=== PATIENT | male | born 1965 | race Caucasian/White ===

== ENCOUNTER 2018-03-07 08:46 | Inpatient (IN) | payer OTHER, MEDICAID ==
[~2018-03-07] VITALS: Ht 185.4 cm; Wt 84.5 kg
[2018-03-07 09:22] LABS: Basophils # (auto) 0.1 uL; Basophils % (auto) 0.9 % (0.0-2.0); Eosinophils # (auto) 0.1 uL; Eosinophils % (auto) 1.5 % (0.0-7.0); Hemoglobin 16.2 g/dL (13.5-17.5); Lymphocytes # (auto) 1.9 uL; Mean Corpuscular Hgb Conc. 34.4 g/dL (32.0-36.0); Monocytes # (auto) 0.9 uL; Monocytes % (auto) 12.7 % (0.0-12.0); Neutrophils # (auto) 4.2 uL; Neutrophils % (auto) 58.9 % (37.0-80.0); Nucleated Red Blood Cells % 0.1 %; Platelet Count (auto) 154 10^3/uL (140-450); Red Cell Distribution Width 12.8 % (11.8-14.3); White Blood Cell 7.2 10^3/uL (4.4-10.8)
[2018-03-07 09:45] LABS: Alanine Aminotransferase 24 U/L (16-61); Alkaline Phosphatase 59 U/L (45-117); Anion Gap 7 (5-15); Aspartate Aminotransferase 25 U/L (15-37); BUN/Creatinine Ratio 9.5; Bilirubin, Total 0.3 mg/dL (0.2-1.0); Blood Urea Nitrogen 11 mg/dL (7-18); Calcium 9.4 mg/dL (8.5-10.1); Carbon Dioxide 28 mmol/L (21-32); Chloride 102 mmol/L (98-107); GFR African American 85 mL/min; GFR Non-African American 70 mL/min; Glucose 105 mg/dL (74-106); Magnesium 2.3 mg/dL (1.6-2.6); Sodium 137 mmol/L (136-145); Total Protein 8.2 g/dL (6.4-8.2)
[2018-03-07 09:54] LABS: Urine Bacteria NONE SEEN /hpf (None Seen); Urine Blood Negative /uL (Negative); Urine Specific Gravity 1.003 (1.001-1.035); Urine WBC <1 /hpf (0 - 3)
[2018-03-07] MEDS ORDERED: LABETALOL HCL 5 MG/ML ML 20ML VIAL IV ONE (10:00)
[2018-03-07] MEDS ORDERED: CLOPIDOGREL BISULFATE 75 MG TAB PO ONE (10:00)
[2018-03-07] MEDS ORDERED: ACETAMINOPHEN 325 MG TAB PO PRN (10:45)
[2018-03-07] MEDS ORDERED: DOCUSATE SOD 100 MG CAP PO PRN (10:45)
[2018-03-07] MEDS ORDERED: PANTOPRAZOLE 40 MG TAB PO ONE (10:45)
[2018-03-07] MEDS ORDERED: NITROGLYCERIN 0.4 MG SL TAB SL PRN (10:45)
[2018-03-07] MEDS ORDERED: cloNIDine HCL 0.1 MG TAB PO PRN (10:45)
[2018-03-07] MEDS ORDERED: HYDROcodone-ACET 5/325MG TAB PO PRN (10:45)
[2018-03-07] MEDS ORDERED: ONDANSETRON HCL 4 MG/2 ML VIAL IV PRN (10:45)
[2018-03-07] MEDS ORDERED: MORPHINE SULFATE 8mg/ml INJ SDV IV PRN ×2 (10:45)
[2018-03-07] MEDS: GABAPENTIN 300 MG CAP PO SCH ×4 (11:00→22:08)
[2018-03-07] MEDS: ENOXAPARIN SOD 40 MG/0.4 ML SYRINGE SC SCH (11:30)
[2018-03-07] MEDS ORDERED: ASPirin-EC 81 mg tab PO ONE (13:00)
[2018-03-07] MEDS: SODIUM CHLOR 0.9% PF (SALINE LOCK) 10ML VIAL/SYR IV SCH ×2 (14:20→22:07)
[2018-03-07] MEDS ORDERED: ENALAPRILAT 1.25 MG/ML-1ML VIAL IV PRN (15:00)
[2018-03-07] MEDS ORDERED: LORazepam 2MG/ML-1ML VIAL IV PRN (17:30)
[2018-03-07 18:58] LABS: Cholesterol 174 mg/dL (< 200); HDL Cholesterol 53 mg/dL (40-59); LDL Cholesterol 115 mg/dL (< 100); Triglycerides 91 mg/dL (< 150)
[2018-03-07 22:00] VITALS: BP 134/83
[2018-03-07] MEDS ORDERED: FAMOTIDINE 20 MG TAB PO SCH (22:00)
[2018-03-07] MEDS: ATORVASTATIN 20 MG TAB PO SCH (22:07)
[2018-03-08 02:36] VITALS: BP 134/83
[2018-03-08 04:41] VITALS: BP 152/96
[2018-03-08 05:37] LABS: Basophils # (auto) 0.1 uL; Basophils % (auto) 0.8 % (0.0-2.0); Eosinophils # (auto) 0.2 uL; Eosinophils % (auto) 2.7 % (0.0-7.0); Hematocrit 45.2 % (41.0-53.0); Hemoglobin 15.6 g/dL (13.5-17.5); Lymphocytes # (auto) 1.9 uL; Lymphocytes % (auto) 25.9 % (10.0-50.0); Mean Corpuscular Hemoglobin 33.5 pg (28.0-32.0); Mean Corpuscular Hgb Conc. 34.4 g/dL (32.0-36.0); Mean Corpuscular Volume 97.4 fL (80.0-100.0); Monocytes # (auto) 0.9 uL; Monocytes % (auto) 11.9 % (0.0-12.0); Neutrophils # (auto) 4.4 uL; Neutrophils % (auto) 58.7 % (37.0-80.0); Platelet Count (auto) 147 10^3/uL (140-450); Red Blood Cells 4.64 10^6/uL (4.5-5.90); White Blood Cell 7.5 10^3/uL (4.4-10.8)
[2018-03-08] MEDS: GABAPENTIN 300 MG CAP PO SCH ×4 (05:52→21:31)
[2018-03-08] MEDS: SODIUM CHLOR 0.9% PF (SALINE LOCK) 10ML VIAL/SYR IV SCH ×3 (05:55→21:31)
[2018-03-08 06:00] LABS: Albumin 3.5 g/dL (3.4-5.0); BUN/Creatinine Ratio 13.5; Bilirubin, Total 0.5 mg/dL (0.2-1.0); Calcium 8.9 mg/dL (8.5-10.1); Potassium 3.8 mmol/L (3.5-5.1)
[2018-03-08 09:00] VITALS: BP 172/94
[2018-03-08] MEDS: DULoxetine HCL 30 MG CAP PO SCH (10:09)
[2018-03-08] MEDS: MULTIPLE VITAMIN TAB PO SCH (10:10)
[2018-03-08] MEDS: PANTOPRAZOLE 40 MG TAB PO SCH (10:10)
[2018-03-08] MEDS: ENOXAPARIN SOD 40 MG/0.4 ML SYRINGE SC SCH (10:10)
[2018-03-08] MEDS: ASPirin-EC 81 mg tab PO SCH (10:10)
[2018-03-08] MEDS ORDERED: NICOTINE 21MG/24 HR TOPICAL PATCH TD ONE (11:30)
[2018-03-08 12:53] VITALS: BP 170/90
[2018-03-08] MEDS ORDERED: hydrALAZINE HCL 20 MG/ML VL IV PRN (14:45)
[2018-03-08] MEDS ORDERED: amLODIPine BESYLATE 5 MG TAB PO ONE (14:45)
[2018-03-08 17:00] VITALS: BP 177/106
[2018-03-08] MEDS ORDERED: LABETALOL HCL 5 MG/ML ML 20ML VIAL IV PRN (18:45)
[2018-03-08] MEDS: LABETALOL HCL 5 MG/ML ML 20ML VIAL IV PRN ×2 (18:52→22:45)
[2018-03-08] MEDS: ATORVASTATIN 20 MG TAB PO SCH (21:31)
[2018-03-08 22:00] VITALS: BP 157/94
[2018-03-09 02:08] LABS: Alcohol, Urine < 3.0 mg/dL (0-5); Amphetamine Screen, Urine NEGATIVE (NEGATIVE); Barbiturate Scree,Urine NEGATIVE (NEGATIVE); Benzodiazephine Screen, Urine NEGATIVE (NEGATIVE); Cannabinoid Screen, Urine POSITIVE (NEGATIVE); Cocaine Screen, Urine NEGATIVE (NEGATIVE); Opiate Scree,Urine NEGATIVE (NEGATIVE); Phencyclidine Screen, Urine NEGATIVE (NEGATIVE)
[2018-03-09 04:43] VITALS: BP 150/84
[2018-03-09] MEDS: GABAPENTIN 300 MG CAP PO SCH ×4 (06:00→21:26)
[2018-03-09] MEDS: SODIUM CHLOR 0.9% PF (SALINE LOCK) 10ML VIAL/SYR IV SCH ×3 (06:03→21:26)
[2018-03-09 08:00] VITALS: BP 171/86
[2018-03-09 09:00] VITALS: BP 171/86
[2018-03-09] MEDS: ASPirin-EC 81 mg tab PO SCH (09:37)
[2018-03-09] MEDS: MULTIPLE VITAMIN TAB PO SCH (09:37)
[2018-03-09] MEDS: DULoxetine HCL 30 MG CAP PO SCH (09:38)
[2018-03-09] MEDS: PANTOPRAZOLE 40 MG TAB PO SCH (09:39)
[2018-03-09] MEDS: ENOXAPARIN SOD 40 MG/0.4 ML SYRINGE SC SCH (09:40)
[2018-03-09] MEDS: NICOTINE 21MG/24 HR TOPICAL PATCH TD SCH (09:41)
[2018-03-09] MEDS ORDERED: amLODIPine BESYLATE 5 MG TAB PO SCH (10:00)
[2018-03-09] MEDS ORDERED: LOSARTAN POTASSIUM 25 MG TAB PO ONE (10:15)
[2018-03-09] MEDS ORDERED: LORazepam 2MG/ML-1ML VIAL IV ONE (10:45)
[2018-03-09 12:56] VITALS: BP 164/116
[2018-03-09 17:06] VITALS: BP 158/82
[2018-03-09] MEDS: ATORVASTATIN 20 MG TAB PO SCH (21:26)
[2018-03-09] MEDS: TEMAZEPAM 15 MG CAP PO PRN (21:31)
[2018-03-09 22:00] VITALS: BP 156/99
[2018-03-10 05:00] VITALS: BP 142/72
[2018-03-10] MEDS: SODIUM CHLOR 0.9% PF (SALINE LOCK) 10ML VIAL/SYR IV SCH ×3 (05:53→21:43)
[2018-03-10] MEDS: GABAPENTIN 300 MG CAP PO SCH ×4 (05:53→21:44)
[2018-03-10 08:42] VITALS: BP 153/93
[2018-03-10] MEDS: DULoxetine HCL 30 MG CAP PO SCH (10:12)
[2018-03-10] MEDS: amLODIPine BESYLATE 5 MG TAB PO SCH (10:13)
[2018-03-10] MEDS: ASPirin-EC 81 mg tab PO SCH (10:13)
[2018-03-10] MEDS: PANTOPRAZOLE 40 MG TAB PO SCH (10:14)
[2018-03-10] MEDS: LOSARTAN POTASSIUM 25 MG TAB PO SCH (10:14)
[2018-03-10] MEDS: MULTIPLE VITAMIN TAB PO SCH (10:15)
[2018-03-10] MEDS: ENOXAPARIN SOD 40 MG/0.4 ML SYRINGE SC SCH (10:15)
[2018-03-10] MEDS: NICOTINE 21MG/24 HR TOPICAL PATCH TD SCH (10:18)
[2018-03-10 13:12] VITALS: BP 136/68
[2018-03-10 17:00] VITALS: BP 163/96
[2018-03-10] MEDS: ATORVASTATIN 20 MG TAB PO SCH (21:43)
[2018-03-10] MEDS: TEMAZEPAM 15 MG CAP PO PRN (21:44)
[2018-03-10 22:00] VITALS: BP 145/79
[2018-03-11 05:00] VITALS: BP 144/77
[2018-03-11] MEDS: SODIUM CHLOR 0.9% PF (SALINE LOCK) 10ML VIAL/SYR IV SCH ×3 (06:00→22:00)
[2018-03-11] MEDS: GABAPENTIN 300 MG CAP PO SCH ×4 (06:01→23:49)
[2018-03-11 09:00] VITALS: BP 149/73
[2018-03-11] MEDS: amLODIPine BESYLATE 5 MG TAB PO SCH (09:28)
[2018-03-11] MEDS: ASPirin-EC 81 mg tab PO SCH (09:29)
[2018-03-11] MEDS: PANTOPRAZOLE 40 MG TAB PO SCH (09:30)
[2018-03-11] MEDS: LOSARTAN POTASSIUM 25 MG TAB PO SCH (09:30)
[2018-03-11] MEDS: MULTIPLE VITAMIN TAB PO SCH (09:30)
[2018-03-11] MEDS: DULoxetine HCL 30 MG CAP PO SCH (09:31)
[2018-03-11] MEDS: ENOXAPARIN SOD 40 MG/0.4 ML SYRINGE SC SCH (09:32)
[2018-03-11] MEDS: NICOTINE 21MG/24 HR TOPICAL PATCH TD SCH (09:32)
[2018-03-11 13:00] VITALS: BP 142/88
[2018-03-11] MEDS: LIDOCAINE 5% TOPICAL PATCH TOP SCH (15:49)
[2018-03-11 17:13] VITALS: BP 152/95
[2018-03-11 22:00] VITALS: BP 164/96
[2018-03-11] MEDS: LACTULOSE 20Gm/30ML SOLN PO SCH (22:00)
[2018-03-11] MEDS: ATORVASTATIN 20 MG TAB PO SCH (23:49)
[2018-03-12] MEDS: TEMAZEPAM 15 MG CAP PO PRN ×2 (00:54→23:14)
[2018-03-12 05:33] VITALS: BP 140/82
[2018-03-12] MEDS: GABAPENTIN 300 MG CAP PO SCH ×4 (06:39→22:43)
[2018-03-12] MEDS: SODIUM CHLOR 0.9% PF (SALINE LOCK) 10ML VIAL/SYR IV SCH ×3 (06:40→22:44)
[2018-03-12 09:00] VITALS: BP 144/93
[2018-03-12] MEDS: ENOXAPARIN SOD 40 MG/0.4 ML SYRINGE SC SCH (09:31)
[2018-03-12] MEDS: NICOTINE 21MG/24 HR TOPICAL PATCH TD SCH (09:32)
[2018-03-12] MEDS: DULoxetine HCL 30 MG CAP PO SCH (09:32)
[2018-03-12] MEDS: ASPirin-EC 81 mg tab PO SCH (09:33)
[2018-03-12] MEDS: MULTIPLE VITAMIN TAB PO SCH (09:33)
[2018-03-12] MEDS: PANTOPRAZOLE 40 MG TAB PO SCH (09:33)
[2018-03-12] MEDS: amLODIPine BESYLATE 5 MG TAB PO SCH (09:34)
[2018-03-12] MEDS: LOSARTAN POTASSIUM 25 MG TAB PO SCH (09:34)
[2018-03-12] MEDS: LIDOCAINE 5% TOPICAL PATCH TOP SCH (09:35)
[2018-03-12 13:00] VITALS: BP 153/94
[2018-03-12 17:10] VITALS: BP 137/86
[2018-03-12] MEDS: ATORVASTATIN 20 MG TAB PO SCH (22:44)
[2018-03-12] MEDS: LACTULOSE 20Gm/30ML SOLN PO SCH (23:13)
[2018-03-13 00:04] VITALS: BP 145/78
[2018-03-13 06:08] VITALS: BP 137/78
[2018-03-13] MEDS: SODIUM CHLOR 0.9% PF (SALINE LOCK) 10ML VIAL/SYR IV SCH ×3 (06:57→22:57)
[2018-03-13] MEDS: GABAPENTIN 300 MG CAP PO SCH ×4 (06:57→22:57)
[2018-03-13] MEDS: LIDOCAINE 5% TOPICAL PATCH TOP SCH (08:51)
[2018-03-13] MEDS: ENOXAPARIN SOD 40 MG/0.4 ML SYRINGE SC SCH (08:51)
[2018-03-13] MEDS: DULoxetine HCL 30 MG CAP PO SCH (08:52)
[2018-03-13] MEDS: amLODIPine BESYLATE 5 MG TAB PO SCH (08:52)
[2018-03-13] MEDS: NICOTINE 21MG/24 HR TOPICAL PATCH TD SCH (08:52)
[2018-03-13] MEDS: ASPirin-EC 81 mg tab PO SCH (08:53)
[2018-03-13] MEDS: PANTOPRAZOLE 40 MG TAB PO SCH (08:53)
[2018-03-13] MEDS: LOSARTAN POTASSIUM 25 MG TAB PO SCH (08:53)
[2018-03-13] MEDS: MULTIPLE VITAMIN TAB PO SCH (08:53)
[2018-03-13 09:00] VITALS: BP 162/90
[2018-03-13 13:00] VITALS: BP 150/97
[2018-03-13 17:00] VITALS: BP 179/99
[2018-03-13] MEDS: LABETALOL HCL 5 MG/ML ML 20ML VIAL IV PRN (18:12)
[2018-03-13 22:00] VITALS: BP 124/79
[2018-03-13] MEDS: LACTULOSE 20Gm/30ML SOLN PO SCH (22:55)
[2018-03-13] MEDS: ATORVASTATIN 20 MG TAB PO SCH (22:56)
[2018-03-13] MEDS: TEMAZEPAM 15 MG CAP PO PRN (22:57)
[2018-03-14 05:00] VITALS: BP 143/73
[2018-03-14] MEDS: SODIUM CHLOR 0.9% PF (SALINE LOCK) 10ML VIAL/SYR IV SCH ×3 (05:22→21:50)
[2018-03-14 06:02] LABS: Basophils # (auto) 0.1 uL; Basophils % (auto) 0.9 % (0.0-2.0); Eosinophils # (auto) 0.2 uL; Eosinophils % (auto) 2.2 % (0.0-7.0); Hematocrit 44.3 % (41.0-53.0); Hemoglobin 14.9 g/dL (13.5-17.5); Lymphocytes # (auto) 1.7 uL; Mean Corpuscular Hgb Conc. 33.7 g/dL (32.0-36.0); Mean Corpuscular Volume 97.9 fL (80.0-100.0); Monocytes # (auto) 1.1 uL; Monocytes % (auto) 14.2 % (0.0-12.0); Neutrophils # (auto) 4.5 uL; Neutrophils % (auto) 59.7 % (37.0-80.0); Nucleated Red Blood Cells % 0.1 %; Platelet Count (auto) 139 10^3/uL (140-450); Red Blood Cells 4.53 10^6/uL (4.5-5.90); Red Cell Distribution Width 12.7 % (11.8-14.3); White Blood Cell 7.5 10^3/uL (4.4-10.8)
[2018-03-14 06:17] LABS: Calcium 9.3 mg/dL (8.5-10.1); Potassium 4.3 mmol/L (3.5-5.1)
[2018-03-14 06:19] LABS: BUN/Creatinine Ratio 22.2
[2018-03-14] MEDS: GABAPENTIN 300 MG CAP PO SCH ×4 (06:34→21:50)
[2018-03-14 08:00] VITALS: BP 138/80
[2018-03-14 09:00] VITALS: BP 130/81
[2018-03-14] MEDS ORDERED: LACTULOSE 20Gm/30ML SOLN PO ONE (09:45)
[2018-03-14] MEDS: DULoxetine HCL 30 MG CAP PO SCH (09:49)
[2018-03-14] MEDS: ASPirin-EC 81 mg tab PO SCH (09:49)
[2018-03-14] MEDS: PANTOPRAZOLE 40 MG TAB PO SCH (09:49)
[2018-03-14] MEDS: amLODIPine BESYLATE 5 MG TAB PO SCH (09:49)
[2018-03-14] MEDS: LIDOCAINE 5% TOPICAL PATCH TOP SCH (09:50)
[2018-03-14] MEDS: LOSARTAN POTASSIUM 25 MG TAB PO SCH (09:50)
[2018-03-14] MEDS: MULTIPLE VITAMIN TAB PO SCH (09:50)
[2018-03-14] MEDS: NICOTINE 21MG/24 HR TOPICAL PATCH TD SCH (09:52)
[2018-03-14] MEDS: ENOXAPARIN SOD 40 MG/0.4 ML SYRINGE SC SCH (10:44)
[2018-03-14 13:00] VITALS: BP 149/101
[2018-03-14] MEDS: BISACODYL 10 MG RECT SUPP PR PRN (13:34)
[2018-03-14 17:00] VITALS: BP 158/83
[2018-03-14] MEDS: LACTULOSE 20Gm/30ML SOLN PO SCH (21:49)
[2018-03-14] MEDS: ATORVASTATIN 20 MG TAB PO SCH (21:50)
[2018-03-14] MEDS: TEMAZEPAM 15 MG CAP PO PRN (21:52)
[2018-03-14 22:00] VITALS: BP 148/88
[2018-03-15 05:30] VITALS: BP 121/57
[2018-03-15] MEDS: GABAPENTIN 300 MG CAP PO SCH ×4 (06:09→22:00)
[2018-03-15] MEDS: SODIUM CHLOR 0.9% PF (SALINE LOCK) 10ML VIAL/SYR IV SCH ×3 (06:09→22:00)
[2018-03-15 08:00] VITALS: BP 147/83
[2018-03-15 09:00] VITALS: BP 147/83
[2018-03-15] MEDS: ENOXAPARIN SOD 40 MG/0.4 ML SYRINGE SC SCH (09:06)
[2018-03-15] MEDS: NICOTINE 21MG/24 HR TOPICAL PATCH TD SCH (09:08)
[2018-03-15] MEDS: LIDOCAINE 5% TOPICAL PATCH TOP SCH (09:08)
[2018-03-15] MEDS: amLODIPine BESYLATE 5 MG TAB PO SCH (09:08)
[2018-03-15] MEDS: ASPirin-EC 81 mg tab PO SCH (09:09)
[2018-03-15] MEDS: LOSARTAN POTASSIUM 25 MG TAB PO SCH (09:09)
[2018-03-15] MEDS: PANTOPRAZOLE 40 MG TAB PO SCH (09:10)
[2018-03-15] MEDS: MULTIPLE VITAMIN TAB PO SCH (09:10)
[2018-03-15] MEDS: DULoxetine HCL 30 MG CAP PO SCH (09:10)
[2018-03-15] MEDS ORDERED: LOSARTAN POTASSIUM 50 MG TAB PO ONE (10:15)
[2018-03-15] MEDS ORDERED: hydrALAZINE HCL 25 MG TAB PO PRN (10:15)
[2018-03-15 13:00] VITALS: BP 140/82
[2018-03-15 16:58] VITALS: BP 136/84
[2018-03-15 22:00] VITALS: BP 144/83
[2018-03-15] MEDS: LACTULOSE 20Gm/30ML SOLN PO SCH (22:00)
[2018-03-15] MEDS: ATORVASTATIN 20 MG TAB PO SCH (22:00)
[2018-03-16 05:00] VITALS: BP 128/74
[2018-03-16] MEDS: GABAPENTIN 300 MG CAP PO SCH ×4 (06:26→22:14)
[2018-03-16] MEDS: SODIUM CHLOR 0.9% PF (SALINE LOCK) 10ML VIAL/SYR IV SCH ×3 (06:30→22:10)
[2018-03-16 08:50] VITALS: BP 131/81
[2018-03-16] MEDS: DULoxetine HCL 30 MG CAP PO SCH (10:38)
[2018-03-16] MEDS: MULTIPLE VITAMIN TAB PO SCH (10:38)
[2018-03-16] MEDS: ASPirin-EC 81 mg tab PO SCH (10:38)
[2018-03-16] MEDS: LOSARTAN POTASSIUM 50 MG TAB PO SCH (10:38)
[2018-03-16] MEDS: amLODIPine BESYLATE 5 MG TAB PO SCH (10:39)
[2018-03-16] MEDS: PANTOPRAZOLE 40 MG TAB PO SCH (10:39)
[2018-03-16] MEDS: LIDOCAINE 5% TOPICAL PATCH TOP SCH (10:40)
[2018-03-16] MEDS: ENOXAPARIN SOD 40 MG/0.4 ML SYRINGE SC SCH (10:40)
[2018-03-16] MEDS: NICOTINE 21MG/24 HR TOPICAL PATCH TD SCH (10:40)
[2018-03-16 12:46] VITALS: BP 143/75
[2018-03-16 17:00] VITALS: BP 146/96
[2018-03-16 22:00] VITALS: BP 158/90
[2018-03-16] MEDS: LACTULOSE 20Gm/30ML SOLN PO SCH (22:10)
[2018-03-16] MEDS: ATORVASTATIN 20 MG TAB PO SCH (22:11)
[2018-03-16] MEDS: TEMAZEPAM 15 MG CAP PO PRN (22:15)
[2018-03-17 05:05] VITALS: BP 138/89
[2018-03-17] MEDS: GABAPENTIN 300 MG CAP PO SCH ×4 (06:11→22:00)
[2018-03-17] MEDS: SODIUM CHLOR 0.9% PF (SALINE LOCK) 10ML VIAL/SYR IV SCH ×3 (06:11→22:00)
[2018-03-17 09:09] VITALS: BP 143/86
[2018-03-17] MEDS: LIDOCAINE 5% TOPICAL PATCH TOP SCH (10:28)
[2018-03-17] MEDS: NICOTINE 21MG/24 HR TOPICAL PATCH TD SCH (10:29)
[2018-03-17] MEDS: MULTIPLE VITAMIN TAB PO SCH (10:30)
[2018-03-17] MEDS: ENOXAPARIN SOD 40 MG/0.4 ML SYRINGE SC SCH (10:30)
[2018-03-17] MEDS: amLODIPine BESYLATE 5 MG TAB PO SCH (10:30)
[2018-03-17] MEDS: ASPirin-EC 81 mg tab PO SCH (10:31)
[2018-03-17] MEDS: DULoxetine HCL 30 MG CAP PO SCH (10:31)
[2018-03-17] MEDS: PANTOPRAZOLE 40 MG TAB PO SCH (10:31)
[2018-03-17] MEDS: LOSARTAN POTASSIUM 50 MG TAB PO SCH (10:32)
[2018-03-17 12:46] VITALS: BP 142/83
[2018-03-17 17:07] VITALS: BP 173/110
[2018-03-17 22:00] VITALS: BP 175/85
[2018-03-17] MEDS: ATORVASTATIN 20 MG TAB PO SCH (22:00)
[2018-03-17] MEDS: LACTULOSE 20Gm/30ML SOLN PO SCH (22:00)
[2018-03-17 23:00] VITALS: BP 141/85
[2018-03-18 05:00] VITALS: BP 125/74
[2018-03-18] MEDS: GABAPENTIN 300 MG CAP PO SCH ×4 (05:32→21:07)
[2018-03-18] MEDS: SODIUM CHLOR 0.9% PF (SALINE LOCK) 10ML VIAL/SYR IV SCH ×3 (05:32→21:07)
[2018-03-18] MEDS: HYDROcodone-ACET 5/325MG TAB PO PRN ×2 (08:26→14:08)
[2018-03-18 09:00] VITALS: BP 139/83
[2018-03-18] MEDS: NICOTINE 21MG/24 HR TOPICAL PATCH TD SCH (09:58)
[2018-03-18] MEDS: ENOXAPARIN SOD 40 MG/0.4 ML SYRINGE SC SCH (09:58)
[2018-03-18] MEDS: LOSARTAN POTASSIUM 50 MG TAB PO SCH (09:59)
[2018-03-18] MEDS: ASPirin-EC 81 mg tab PO SCH (09:59)
[2018-03-18] MEDS: DULoxetine HCL 30 MG CAP PO SCH (09:59)
[2018-03-18] MEDS: MULTIPLE VITAMIN TAB PO SCH (10:00)
[2018-03-18] MEDS: PANTOPRAZOLE 40 MG TAB PO SCH (10:00)
[2018-03-18] MEDS: amLODIPine BESYLATE 5 MG TAB PO SCH (10:00)
[2018-03-18 13:00] VITALS: BP 116/100
[2018-03-18 17:00] VITALS: BP 140/94
[2018-03-18] MEDS: MORPHINE SULFATE 8mg/ml INJ SDV IV PRN (20:29)
[2018-03-18] MEDS: ATORVASTATIN 20 MG TAB PO SCH (21:06)
[2018-03-18] MEDS: LACTULOSE 20Gm/30ML SOLN PO SCH (21:07)
[2018-03-18] MEDS ORDERED: DULoxetine HCL 30 MG CAP PO SCH (22:00)
[2018-03-18 22:11] VITALS: BP 149/90
[2018-03-19] MEDS: TEMAZEPAM 15 MG CAP PO PRN ×2 (00:14→21:42)
[2018-03-19 05:30] VITALS: BP 124/60
[2018-03-19] MEDS: SODIUM CHLOR 0.9% PF (SALINE LOCK) 10ML VIAL/SYR IV SCH ×3 (05:37→21:41)
[2018-03-19] MEDS: GABAPENTIN 300 MG CAP PO SCH ×4 (05:37→21:41)
[2018-03-19 08:59] VITALS: BP 148/87
[2018-03-19] MEDS: ENOXAPARIN SOD 40 MG/0.4 ML SYRINGE SC SCH (09:42)
[2018-03-19] MEDS: NICOTINE 21MG/24 HR TOPICAL PATCH TD SCH (09:42)
[2018-03-19] MEDS: ASPirin-EC 81 mg tab PO SCH (09:42)
[2018-03-19] MEDS: PANTOPRAZOLE 40 MG TAB PO SCH (09:42)
[2018-03-19] MEDS: LOSARTAN POTASSIUM 50 MG TAB PO SCH (09:43)
[2018-03-19] MEDS: DULoxetine HCL 30 MG CAP PO SCH (09:43)
[2018-03-19] MEDS: MULTIPLE VITAMIN TAB PO SCH (09:44)
[2018-03-19] MEDS: amLODIPine BESYLATE 5 MG TAB PO SCH (09:44)
[2018-03-19] MEDS: MORPHINE SULFATE 8mg/ml INJ SDV IV PRN (12:08)
[2018-03-19] MEDS: HYDROcodone-ACET 5/325MG TAB PO PRN ×2 (12:46→17:10)
[2018-03-19 13:00] VITALS: BP 136/88
[2018-03-19 17:03] VITALS: BP 150/92
[2018-03-19] MEDS: ATORVASTATIN 20 MG TAB PO SCH (21:41)
[2018-03-19] MEDS: LACTULOSE 20Gm/30ML SOLN PO SCH (21:41)
[2018-03-19 23:00] VITALS: BP 145/89
[2018-03-20] MEDS: HYDROcodone-ACET 5/325MG TAB PO PRN ×4 (04:33→16:10)
[2018-03-20] MEDS: SODIUM CHLOR 0.9% PF (SALINE LOCK) 10ML VIAL/SYR IV SCH ×3 (05:36→21:33)
[2018-03-20] MEDS: GABAPENTIN 300 MG CAP PO SCH ×4 (05:36→21:34)
[2018-03-20 05:57] LABS: INR 0.95 (0.9-1.15); Prothrombin Time 10.4 sec (9.37-12.3)
[2018-03-20 06:24] VITALS: BP 138/94
[2018-03-20 08:19] VITALS: BP 145/86
[2018-03-20] MEDS: NICOTINE 21MG/24 HR TOPICAL PATCH TD SCH (10:08)
[2018-03-20] MEDS: ENOXAPARIN SOD 40 MG/0.4 ML SYRINGE SC SCH (10:08)
[2018-03-20] MEDS: DULoxetine HCL 30 MG CAP PO SCH (10:09)
[2018-03-20] MEDS: ASPirin-EC 81 mg tab PO SCH (10:09)
[2018-03-20] MEDS: LOSARTAN POTASSIUM 50 MG TAB PO SCH (10:09)
[2018-03-20] MEDS: PANTOPRAZOLE 40 MG TAB PO SCH (10:09)
[2018-03-20] MEDS: MULTIPLE VITAMIN TAB PO SCH (10:09)
[2018-03-20] MEDS: amLODIPine BESYLATE 5 MG TAB PO SCH (10:10)
[2018-03-20 12:00] VITALS: BP 141/93
[2018-03-20] MEDS: BISACODYL 10 MG RECT SUPP PR PRN ×2 (14:00→18:55)
[2018-03-20 16:58] VITALS: BP 148/97
[2018-03-20] MEDS: MORPHINE SULFATE 8mg/ml INJ SDV IV PRN (18:54)
[2018-03-20] MEDS: ATORVASTATIN 20 MG TAB PO SCH (21:34)
[2018-03-20] MEDS: LACTULOSE 20Gm/30ML SOLN PO SCH (21:34)
[2018-03-20] MEDS: TEMAZEPAM 15 MG CAP PO PRN (21:43)
[2018-03-20 22:00] VITALS: BP 139/81
[2018-03-21 05:00] VITALS: BP 136/60
[2018-03-21 05:22] LABS: Basophils # (auto) 0.1 uL; Basophils % (auto) 0.9 % (0.0-2.0); Eosinophils # (auto) 0.2 uL; Eosinophils % (auto) 2.4 % (0.0-7.0); Hematocrit 46.9 % (41.0-53.0); Hemoglobin 15.8 g/dL (13.5-17.5); Lymphocytes # (auto) 2.4 uL; Lymphocytes % (auto) 32.9 % (10.0-50.0); Mean Corpuscular Hgb Conc. 33.7 g/dL (32.0-36.0); Monocytes % (auto) 13.6 % (0.0-12.0); Neutrophils # (auto) 3.7 uL; Neutrophils % (auto) 50.2 % (37.0-80.0); Nucleated Red Blood Cells % 0.1 %; Platelet Count (auto) 160 10^3/uL (140-450); Red Blood Cells 4.78 10^6/uL (4.5-5.90); Red Cell Distribution Width 12.6 % (11.8-14.3); White Blood Cell 7.3 10^3/uL (4.4-10.8)
[2018-03-21] MEDS: GABAPENTIN 300 MG CAP PO SCH ×3 (05:37→17:58)
[2018-03-21] MEDS: SODIUM CHLOR 0.9% PF (SALINE LOCK) 10ML VIAL/SYR IV SCH (05:37)
[2018-03-21 05:49] LABS: Albumin 3.9 g/dL (3.4-5.0); Calcium 9.6 mg/dL (8.5-10.1); Potassium 3.8 mmol/L (3.5-5.1)
[2018-03-21 05:53] LABS: Bilirubin, Total 0.5 mg/dL (0.2-1.0); Total Protein 7.8 g/dL (6.4-8.2)
[2018-03-21 08:42] VITALS: BP 157/84
[2018-03-21] MEDS: DULoxetine HCL 30 MG CAP PO SCH (09:40)
[2018-03-21] MEDS: ASPirin-EC 81 mg tab PO SCH (09:40)
[2018-03-21] MEDS: LOSARTAN POTASSIUM 50 MG TAB PO SCH (09:40)
[2018-03-21] MEDS: amLODIPine BESYLATE 5 MG TAB PO SCH (09:41)
[2018-03-21] MEDS: MULTIPLE VITAMIN TAB PO SCH (09:41)
[2018-03-21] MEDS: ENOXAPARIN SOD 40 MG/0.4 ML SYRINGE SC SCH (09:42)
[2018-03-21] MEDS: NICOTINE 21MG/24 HR TOPICAL PATCH TD SCH (09:42)
[2018-03-21] MEDS: PANTOPRAZOLE 40 MG TAB PO SCH (09:42)
[2018-03-21] MEDS ORDERED: ASP81EC PO (10:12)
[2018-03-21] MEDS ORDERED: LOSA50TA6 PO (10:12)
[2018-03-21] MEDS ORDERED: ATOR20TA50 PO (10:12)
[2018-03-21] MEDS ORDERED: AML5T PO (10:12)
[2018-03-21] MEDS ORDERED: DULO1CAP2 PO (10:12)
[2018-03-21] MEDS ORDERED: NIC21P TD (10:12)
[2018-03-21] MEDS ORDERED: ACETAMINOPHEN 325 MG TAB PO PRN (10:15)
[2018-03-21] MEDS ORDERED: DOCUSATE SOD 100 MG CAP PO PRN (10:15)
[2018-03-21] MEDS ORDERED: ONDANSETRON HCL 4 MG/2 ML VIAL IV PRN (10:15)
[2018-03-21] MEDS ORDERED: HYDROcodone-ACET 5/325MG TAB PO PRN (10:15)
[2018-03-21] MEDS ORDERED: MORPHINE SULFATE 8mg/ml INJ SDV IV PRN (10:15)
[2018-03-21] MEDS ORDERED: TEMAZEPAM 15 MG CAP PO PRN (10:15)
[2018-03-21 13:00] VITALS: BP 150/99
[2018-03-21] MEDS ORDERED: SODIUM CHLOR 0.9% PF (SALINE LOCK) 10ML VIAL/SYR IV SCH (14:00)
[2018-03-21 15:57] VITALS: BP 150/99
[2018-03-21 16:57] VITALS: BP 139/84
[2018-03-21] MEDS ORDERED: ATORVASTATIN 20 MG TAB PO SCH (22:00)
[2018-03-21] MEDS ORDERED: GABAPENTIN 300 MG CAP PO SCH (22:00)
[2018-03-22] MEDS ORDERED: ASPirin-EC 81 mg tab PO SCH (10:00)
[2018-03-22] MEDS ORDERED: NICOTINE 21MG/24 HR TOPICAL PATCH TD SCH (10:00)
[2018-03-22] MEDS ORDERED: DULoxetine HCL 30 MG CAP PO SCH (10:00)
[2018-03-22] MEDS ORDERED: MULTIPLE VITAMIN TAB PO SCH (10:00)
[2018-03-22] MEDS ORDERED: PANTOPRAZOLE 40 MG TAB PO SCH (10:00)
[2018-03-22] MEDS ORDERED: ENOXAPARIN SOD 40 MG/0.4 ML SYRINGE SC SCH (10:00)
== END 2018-03-21 18:40 | disposition home or self-care (01) | DRG 65 ==
LOC: ER 08:46 → TELE 08:47 → TELE-WESTW 18:02 → WEST WING 03-15 10:29 → TELE-WESTW 03-16 11:42 → WEST WING 03-18 01:57
PROVIDERS: ADMIT Internal Medicine; ATTEND Internal Medicine
DX: I63.9 Cerebral infarction, unspecified (principal); G81.91 Hemiplegia, unspecified affecting right dominant side; I13.10 Hypertensive heart and chronic kidney disease without heart failure, with stage 1 through stage 4 chronic kidney disease, or unspecified chronic kidney disease; G81.94 Hemiplegia, unspecified affecting left nondominant side; N18.2 Chronic kidney disease, stage 2 (mild); E78.5 Hyperlipidemia, unspecified; F17.200 Nicotine dependence, unspecified, uncomplicated; F32.9 Major depressive disorder, single episode, unspecified; F41.9 Anxiety disorder, unspecified; Q55.22 Retractile testis; G89.4 Chronic pain syndrome; H53.2 Diplopia; M06.9 Rheumatoid arthritis, unspecified; I70.8 Atherosclerosis of other arteries; K59.00 Constipation, unspecified; M21.379 Foot drop, unspecified foot; M54.16 Radiculopathy, lumbar region; N18.9 Chronic kidney disease, unspecified; R29.810 Facial weakness; Z79.82 Long term (current) use of aspirin; Z79.899 Other long term (current) drug therapy; Z80.1 Family history of malignant neoplasm of trachea, bronchus and lung; Z82.3 Family history of stroke; Z82.49 Family history of ischemic heart disease and other diseases of the circulatory system; R47.1 Dysarthria and anarthria
CPT/HCPCS: 36415; 70450; 70545; 70551; 71045; 80048; 80053; 80061; 80307; 81001; 83735; 84484; 85025; 85610; 87081; 92610; 93005; 93306; 93886; 93971; 94660; 96372; 96374; 97110; 97116; 97163; 97530; 99291; J2270; J2405

== ENCOUNTER → 2018-07-26 | Outpatient (CLI) | payer MEDICARE, MEDICAID ==
[~2018-07-26] MED LIST: AML5T PO; ASP81EC PO; ATOR20TA50 PO; DULO1CAP2 PO; LOSA-46 PO; NIC21P TD
== END | disposition home or self-care (01) ==
LOC: Rad HDHVI 14:37
PROVIDERS: ATTEND Internal Medicine
DX: I73.9 Peripheral vascular disease, unspecified (principal); E78.5 Hyperlipidemia, unspecified; I10 Essential (primary) hypertension
CPT/HCPCS: 93926

== ENCOUNTER → 2018-08-04 | Outpatient (CLI) | payer MEDICARE, MEDICAID ==
[~2018-08-04] VITALS: Ht 182.9 cm; Wt 94.3 kg
[~2018-08-04] MED LIST changes: +ADENOSINE 79 MG in GIVE UN-DILUTED 0 ML IV ONE; +ADENOSINE 90 MG/30 ML INJ IV ONE
[2018-08-04 12:01] LABS: Urine Blood Negative /uL (Negative)
[2018-08-04 12:07] LABS: Basophils # (auto) 0.1 uL; Eosinophils # (auto) 0.2 uL; Eosinophils % (auto) 2.8 % (0.0-7.0); Hemoglobin 13.8 g/dL (13.5-17.5); Lymphocytes # (auto) 1.8 uL; Lymphocytes % (auto) 24.6 % (10.0-50.0); Mean Corpuscular Hemoglobin 33.3 pg (28.0-32.0); Mean Corpuscular Hgb Conc. 34.5 g/dL (32.0-36.0); Mean Corpuscular Volume 96.5 fL (80.0-100.0); Monocytes # (auto) 0.7 uL; Monocytes % (auto) 10.3 % (0.0-12.0); Neutrophils # (auto) 4.4 uL; Neutrophils % (auto) 61.3 % (37.0-80.0); Platelet Count (auto) 189 10^3/uL (140-450); Red Blood Cells 4.14 10^6/uL (4.5-5.90); Red Cell Distribution Width 12.8 % (11.8-14.3); White Blood Cell 7.2 10^3/uL (4.4-10.8)
[2018-08-04 12:20] LABS: Albumin 4.2 g/dL (3.4-5.0); BUN/Creatinine Ratio 8.8; Bilirubin, Total 0.3 mg/dL (0.2-1.0); Calcium 9.3 mg/dL (8.5-10.1); Potassium 3.6 mmol/L (3.5-5.1); Total Protein 8.1 g/dL (6.4-8.2)
[2018-08-04 12:28] LABS: Free T4 (Free Thyroxine) 0.89 ng/dL (0.89-1.76); Prostate Specific Antigen 1.21 ng/mL (0.0-4.0)
== END | disposition home or self-care (01) ==
LOC: Rad HDHVI 08:08
PROVIDERS: ATTEND Internal Medicine
DX: Z00.01 Encounter for general adult medical examination with abnormal findings (principal); C61 Malignant neoplasm of prostate; I25.10 Atherosclerotic heart disease of native coronary artery without angina pectoris; I12.9 Hypertensive chronic kidney disease with stage 1 through stage 4 chronic kidney disease, or unspecified chronic kidney disease; E11.22 Type 2 diabetes mellitus with diabetic chronic kidney disease; N18.3 Chronic kidney disease, stage 3 (moderate); N39.0 Urinary tract infection, site not specified; D51.9 Vitamin B12 deficiency anemia, unspecified; E29.1 Testicular hypofunction; E55.9 Vitamin D deficiency, unspecified; E03.9 Hypothyroidism, unspecified; R06.02 Shortness of breath; R42 Dizziness and giddiness; R60.9 Edema, unspecified; G62.9 Polyneuropathy, unspecified; R53.1 Weakness; Z86.73 Personal history of transient ischemic attack (TIA), and cerebral infarction without residual deficits
CPT/HCPCS: 36415; 78452; 80053; 80061; 81003; 82306; 82607; 83036; 84153; 84403; 84439; 84443; 85025; 93005; 96374; 96375; A9500; J0153

== ENCOUNTER → 2019-05-03 | Outpatient (CLI) | payer MEDICARE, MEDICAID ==
[~2019-05-03] MED LIST changes: -ADENOSINE 79 MG in GIVE UN-DILUTED 0 ML IV ONE; -ADENOSINE 90 MG/30 ML INJ IV ONE
[2019-05-03 11:25] LABS: Basophils # (auto) 0.1 uL; Basophils % (auto) 0.8 % (0.0-2.0); Eosinophils # (auto) 0.2 uL; Hemoglobin 13.3 g/dL (13.5-17.5); Lymphocytes # (auto) 1.5 uL; Mean Corpuscular Hemoglobin 32.4 pg (28.0-32.0); Mean Corpuscular Hgb Conc. 33.2 g/dL (32.0-36.0); Mean Corpuscular Volume 97.7 fL (80.0-100.0); Monocytes # (auto) 0.7 uL; Monocytes % (auto) 9.2 % (0.0-12.0); Neutrophils # (auto) 4.9 uL; Nucleated Red Blood Cells % 0.1 %; Platelet Count (auto) 177 10^3/uL (140-450); Red Cell Distribution Width 12.9 % (11.8-14.3); Urine Blood Negative /uL (Negative); Urine Specific Gravity 1.009 (1.001-1.035); White Blood Cell 7.4 10^3/uL (4.4-10.8)
[2019-05-03 11:36] LABS: Calcium 9.6 mg/dL (8.5-10.1); Potassium 3.8 mmol/L (3.5-5.1)
[2019-05-03 11:41] LABS: BUN/Creatinine Ratio 4.4; Bilirubin, Total 0.4 mg/dL (0.2-1.0); Total Protein 7.4 g/dL (6.4-8.2)
[2019-05-03 11:44] LABS: Free T4 (Free Thyroxine) 0.75 ng/dL (0.89-1.76); Prostate Specific Antigen 1.09 ng/mL (0.0-4.0)
== END | disposition home or self-care (01) ==
LOC: LAB 08:58
PROVIDERS: ATTEND Internal Medicine
DX: E03.9 Hypothyroidism, unspecified (principal); E55.9 Vitamin D deficiency, unspecified; C61 Malignant neoplasm of prostate; E29.1 Testicular hypofunction; D51.9 Vitamin B12 deficiency anemia, unspecified; N39.0 Urinary tract infection, site not specified; Z79.899 Other long term (current) drug therapy
CPT/HCPCS: 36415; 80053; 80061; 81003; 82306; 82607; 83036; 84153; 84403; 84439; 84443; 85025

== ENCOUNTER 2019-07-02 17:27 | Inpatient (IN) | payer MEDICARE, MEDICAID ==
[~2019-07-02] VITALS: Ht 182.9 cm; Wt 96.4 kg
[~2019-07-02 17:27] MED LIST changes: -DULO1CAP2 PO; +DULO1CAP5 PO; -LOSA-46 PO; +LOSA-69 PO
[2019-07-02 18:33] LABS: Basophils # (auto) 0.1 uL; Basophils % (auto) 0.4 % (0.0-2.0); Eosinophils # (auto) 0 uL; Eosinophils % (auto) 0.2 % (0.0-7.0); Hematocrit 41.7 % (41.0-53.0); Lymphocytes # (auto) 1.1 uL; Lymphocytes % (auto) 6.8 % (10.0-50.0); Mean Corpuscular Hemoglobin 32.2 pg (28.0-32.0); Mean Corpuscular Hgb Conc. 33.5 g/dL (32.0-36.0); Mean Corpuscular Volume 95.9 fL (80.0-100.0); Monocytes # (auto) 1.5 uL; Monocytes % (auto) 9.7 % (0.0-12.0); Neutrophils # (auto) 12.8 uL; Neutrophils % (auto) 82.9 % (37.0-80.0); Nucleated Red Blood Cells % 0.1 %; Platelet Count (auto) 187 10^3/uL (140-450); Red Blood Cells 4.35 10^6/uL (4.5-5.90); White Blood Cell 15.5 10^3/uL (4.4-10.8)
[2019-07-02 18:43] LABS: Albumin 4.5 g/dL (3.4-5.0); Calcium 9.2 mg/dL (8.5-10.1); Potassium 3.2 mmol/L (3.5-5.1)
[2019-07-02 19:00] LABS: BUN/Creatinine Ratio 8.1; Bilirubin, Total 0.5 mg/dL (0.2-1.0); Total Protein 8.1 g/dL (6.4-8.2)
[2019-07-02 19:05] LABS: Urine Bacteria NONE SEEN /hpf (None Seen); Urine Blood Negative /uL (Negative); Urine Specific Gravity 1.007 (1.001-1.035); Urine WBC <1 /hpf (0 - 3)
[2019-07-02] MEDS ORDERED: MORPHINE SULFATE 4 MG/ML SYR/VIAL IV ONE (19:45)
[2019-07-02] MEDS ORDERED: ONDANSETRON HCL 4 MG/2 ML VIAL IV ONE (19:45)
[2019-07-02] MEDS ORDERED: SODIUM CHLORIDE 0.9% 1,000 ML IVB ONE (20:06)
[2019-07-02] MEDS ORDERED: POTASSIUM CHL 20 Meq TABLET PO ONE (20:15)
[2019-07-02 20:44] LABS: INR 0.95 (0.9-1.15); Partial Thromboplastin Time 27.6 sec (23.64-32.05)
[2019-07-02 21:21] LABS: Urine Bacteria NONE SEEN /hpf (None Seen); Urine Blood Negative /uL (Negative); Urine Specific Gravity 1.004 (1.001-1.035); Urine WBC <1 /hpf (0 - 3)
[2019-07-02] MEDS ORDERED: ONDANSETRON HCL 4 MG/2 ML VIAL IV PRN (21:45)
[2019-07-02] MEDS ORDERED: ACETAMINOPHEN 500 MG TAB PO PRN (21:45)
[2019-07-02] MEDS ORDERED: TEMAZEPAM 15 MG CAP PO PRN (21:45)
[2019-07-02] MEDS: ATORVASTATIN 20 MG TAB PO SCH (22:00)
[2019-07-02] MEDS: HYDROmorphone HCL 2 MG/ML VL IV PRN (23:03)
[2019-07-02 23:15] VITALS: BP 153/77
--- NOTE | 2019-07-02 23:15 | NUR ---
MS admit from ER KEERTHI VELÁSQUEZ admitted to tele/MS. Patient oriented to WILDA GROVES, primary RN, unit, room, bed, and unit policies regarding patient care and visiting hours. Patient weighed by bedscale and encouraged to call as needed. All questions and concerns addressed, patient verbalized understanding. Bed is locked in lowest position, side rails x 2 are up, call light is within reach, and bed alarm is on.
[2019-07-03] MEDS ORDERED: LOSA25TA38 PO (00:17)
[2019-07-03] MEDS: HYDROcodone-ACET 5/325MG TAB PO PRN ×3 (02:29→22:31)
[2019-07-03] MEDS: HYDROmorphone HCL 2 MG/ML VL IV PRN ×4 (03:43→20:04)
[2019-07-03 04:58] VITALS: BP 134/83
[2019-07-03 06:55] LABS: Basophils # (auto) 0.1 uL; Basophils % (auto) 0.6 % (0.0-2.0); Eosinophils # (auto) 0.1 uL; Eosinophils % (auto) 0.6 % (0.0-7.0); Hematocrit 41.2 % (41.0-53.0); Hemoglobin 14.3 g/dL (13.5-17.5); Lymphocytes # (auto) 1.8 uL; Mean Corpuscular Hemoglobin 32.9 pg (28.0-32.0); Mean Corpuscular Hgb Conc. 34.6 g/dL (32.0-36.0); Mean Corpuscular Volume 95.1 fL (80.0-100.0); Monocytes # (auto) 1.2 uL; Monocytes % (auto) 13.9 % (0.0-12.0); Neutrophils # (auto) 5.3 uL; Neutrophils % (auto) 62.9 % (37.0-80.0); Platelet Count (auto) 173 10^3/uL (140-450); Red Blood Cells 4.34 10^6/uL (4.5-5.90); Red Cell Distribution Width 12.7 % (11.8-14.3); White Blood Cell 8.4 10^3/uL (4.4-10.8)
[2019-07-03] MEDS: PANTOPRAZOLE 40 MG TAB PO SCH (07:05)
[2019-07-03 07:13] LABS: BUN/Creatinine Ratio 5.5; Potassium 3.3 mmol/L (3.5-5.1)
--- NOTE | 2019-07-03 07:30 | NUR ---
PICTURE TAKEN FOR REFERENCE Patient noted to have a scab to left elbow. Picture taken for reference.
--- NOTE | 2019-07-03 08:00 | NUR ---
Opening Shift Note Assumed care of patient, awake and alert. No S/S of distress/SOB or pain. Instructed on POC and to call for assist PRN, will continue to monitor for changes Q1hr and PRN. Patient refused reposition in bed due to pain on left hip secondary to fx. encourage to shift weight to prevent pressure injury.
[2019-07-03 08:51] VITALS: BP 150/88
[2019-07-03] MEDS: amLODIPine BESYLATE 5 MG TAB PO SCH (10:13)
--- NOTE | 2019-07-03 11:15 | NUR ---
WOUND CARE NOTE: IN TO SEE PATIENT AT THIS TIME FOR SKIN INTEGRITY. PATIENT WAS RECENTLY ADMITTED TO [facility] WITH DIAGNOSIS OF LEFT HIP FRACTURE. PATIENT IS S/P FALL, RENDERING HIM WITH AN OPEN ABRASION TO THE LEFT ELBOW. WOUND PHOTO TAKEN UPON ADMIT BY BEDSIDE NURSE FOR REFERENCE. CURRENT FAVIOLA SCORE IS 16. PATIENT IS ABLE TO ASSIST WITH HIS TURNING/REPOSITIONING. HE HAS HISTORY WITH CVA, AND HAS A PARTIALLY CONTRACTED LEFT ARM. ABRASION MEASURES 2 X 2 CM. WOUND BED IS RED, WITH DARK RED PERIWOUND. SCANT SEROUS DRAINAGE NOTED. APPLIED THERAHONEY, OPTIFOAM GENTLE SACRAL DRESSING. NO OTHER SKIN INTEGRITY ISSUES NOTED. RECOMMEND: Q 3 DAY/PRN DRESSING CHANGE TO LEFT ELBOW WOUND, FREQUENT TURN SCHEDULE Q 2 HOURS, PRN CONDITION PERMITS, WITH PRESSURE REDISTRIBUTION USING PILLOWS/WEDGES, SKIN/WOUND CARE PLAN. Addendum: 07/03/19 at 1637 by Keren Meyers RN Amended: Links added.
[2019-07-03 13:00] VITALS: BP 122/79
[2019-07-03 17:00] VITALS: BP 143/74
[2019-07-03] MEDS ORDERED: GABA-339 PO (18:52)
[2019-07-03] MEDS ORDERED: ATOR40TA52 PO (18:52)
--- NOTE | 2019-07-03 19:30 | NUR ---
Opening Shift Note Assumed care of patient, awake and alert x4. Patient complains of pain to left hip (pain scale 7/10), will medicate patient as ordered by MD. No S/S of distress/SOB noted. Instructed on plan of care and to call for assistance as needed. Bed is locked in lowest position, side rails x 2 are up, call light is within reach, and bed alarm is on.
--- NOTE | 2019-07-03 20:10 | NUR ---
HOSPITALIST PAGED RE: CPAP Hospitalist paged regarding CPAP. Patient states he uses CPAP at home. Awaiting call back.
--- NOTE | 2019-07-03 20:53 | NUR ---
HOSPITALIST RETURNED CALL RE: CPAP Notified KRISTINE Plummer that patient uses CPAP at home. Orders for CPAP received. Order read back and verified. Will carry out orders as received. KRISTINE Plummer also made aware of patients potassium level.
[2019-07-03 21:00] VITALS: BP 126/71
[2019-07-03] MEDS: ATORVASTATIN 20 MG TAB PO SCH (22:31)
--- NOTE | 2019-07-03 22:40 | NUR ---
Respiratory note: PT SEEN FOR HIS CPAP AT NIGHT ORDER. CPAP UNIT SET UP ALONG WITH BEDSIDE PULSE OX, PT STATED THAT HE WASN'T READY TO GO ON JUST YET. PT AWARE TO CALL FOR RT WHEN HE WISHES TO GO ON CPAP.
--- NOTE | 2019-07-04 00:30 | NUR ---
ROUNDS Patient is laying in bed with symmetrical chest rise and fall. No S/S of distress or pain noted. Bed is locked in lowest position, side rails x 2 are up, call light is within reach, and bed alarm is on.
[2019-07-04 01:26] VITALS: BP 126/71
[2019-07-04 01:33] VITALS: BP 137/73
[2019-07-04] MEDS: HYDROmorphone HCL 2 MG/ML VL IV PRN ×4 (01:34→23:06)
[2019-07-04 05:00] VITALS: BP 120/66
[2019-07-04] MEDS: PANTOPRAZOLE 40 MG TAB PO SCH (05:47)
--- NOTE | 2019-07-04 05:50 | NUR ---
PATIENT REFUSING CHG BATH Patient refusing CHG bath at this time. Patient states he is in severe pain, patient has been medicated for pain as ordered by MD. Will attempt to perform CHG bath at a later time.
--- NOTE | 2019-07-04 06:45 | NUR ---
PATIENT CONTINUES TO REFUSE CHG BATH Patient continues to refuse CHG bath at this time. Patient is also refusing Price catheter insertion at this. Educated patient on why he needs CHG bath and Price catheter insertion, patient verbalized understanding. Patient states he "can't stand the idea of moving." Patient has already been medicated for pain.
[2019-07-04] MEDS ORDERED: HYDROmorphone HCL 2 MG/ML VL IV ONE (07:15)
--- NOTE | 2019-07-04 07:45 | NUR ---
INDWELLING QUINONES INSERTED, TOLERATED WELL.
[2019-07-04 09:00] VITALS: BP 144/75
[2019-07-04] MEDS: amLODIPine BESYLATE 5 MG TAB PO SCH (09:30)
[2019-07-04] MEDS: DULoxetine HCL 30 MG CAP PO SCH (09:31)
[2019-07-04] MEDS ORDERED: DULoxetine HCL 30 MG CAP PO SCH (10:00)
--- NOTE | 2019-07-04 10:33 | NUR ---
Respiratory note: SPOKE WITH PT REGARDING CPAP USE. PT STATES HE DOES WEAR ONE AT HOME AND STATES HE WILL WEAR IT HERE TONIGHT BUT HE ONLY LIKES TO WEAR IN FOR A COUPLE OF HRS AT A TIME. PT WAS FOUND TO BE ON RA SPO2 81% PT WAS PLACED ON 3L N/C SPO2 IMPROVED TO 92% HR 84 RR 18. PT IS AWARE TO HAVE RT PAGED WHEN HE'S READY FOR CPAP PLACEMENT OR THAT RT WILL BE IN FOR PLACEMENT IN THE 22:00 HOUR.
[2019-07-04] MEDS ORDERED: MORPHINE SULF(PF) 0.5MG/ML 10ML VIAL ONE (12:24)
[2019-07-04] MEDS ORDERED: MIDAZOLAM HCL 1MG/1ML-2 ML VIAL ONE ×2 (12:24→12:25)
[2019-07-04] MEDS ORDERED: fentaNYL CITRATE 100 MCG/2 ML VL ONE ×2 (12:24→13:37)
[2019-07-04] MEDS ORDERED: ONDANSETRON HCL 4 MG/2 ML VIAL ONE (12:25)
[2019-07-04] MEDS ORDERED: PROPOFOL 10 MG/ML 20 ML IV ONE ×2 (12:25→15:06)
[2019-07-04] MEDS ORDERED: SODIUM CHLORIDE LOCK 10 ML ONE (12:25)
--- NOTE | 2019-07-04 12:45 | NUR ---
OFF UNIT TO SURGERY
[2019-07-04] MEDS ORDERED: ceFAZolin 1GM/50ML 50 ML IV ONE (12:50)
[2019-07-04 13:00] VITALS: BP 127/73
[2019-07-04] MEDS ORDERED: TETRACAINE 1% INJ 2 ML VIAL IJ ONE (13:16)
[2019-07-04] MEDS ORDERED: ROCURONIUM 10MG/ML 10ML VIAL IV ONE (13:36)
[2019-07-04] MEDS ORDERED: SUCCINYLCHOLINE CHLORIDE 20 MG/ML 10ML VIAL IV ONE (13:36)
[2019-07-04] MEDS ORDERED: HYDROmorphone HCL 2 MG/ML VL ONE (13:37)
[2019-07-04] MEDS ORDERED: HYDROmorphone HCL 2 MG/ML VL IV PRN (15:00)
[2019-07-04] MEDS ORDERED: METOCLOPRAMIDE HCL 5MG/ml INJ 2ml VIAL IV PRN (15:00)
--- NOTE | 2019-07-04 16:45 | NUR ---
BACK FROM SURGERY, AWAKE ALERT AND ORIENTED. LEFT HIP DRESSING IS CLEAN,DRY AND INTACT. DENIES PAIN AT PRESENT.
--- NOTE | 2019-07-04 19:10 | NUR ---
Opening Shift Note Assumed care of patient, awake and alert x4. Family member noted at the bedside. Patient complains of pain to left hip (pain scale 10/10), will medicate patient as ordered by MD. No S/S of distress/SOB noted. Instructed on plan of care and to call for assistance as needed. Bed is locked in lowest position, side rails x 2 are up, call light is within reach, and bed alarm is on.
--- NOTE | 2019-07-04 19:25 | NUR ---
CONTINUITY OF CARE ENDORSE TO JABARI ASTUDILLO
[2019-07-04] MEDS: ATORVASTATIN 20 MG TAB PO SCH (21:09)
[2019-07-04] MEDS: HYDROcodone-ACET 5/325MG TAB PO PRN (21:09)
[2019-07-04 22:00] VITALS: BP 132/87
[2019-07-05] VITALS (7 sets, daily range): BP systolic 124–141; BP diastolic 76–87
[2019-07-05] MEDS: HYDROcodone-ACET 5/325MG TAB PO PRN ×3 (01:22→12:07)
[2019-07-05] MEDS: HYDROmorphone HCL 2 MG/ML VL IV PRN ×4 (03:40→20:53)
[2019-07-05] MEDS: PANTOPRAZOLE 40 MG TAB PO SCH (06:42)
--- NOTE | 2019-07-05 07:30 | NUR ---
OPENING SHIFT NOTE ASSUMED CARE OF PATIENT FROM ARBOR PRESS OPERATOR RN WILDA. PATIENT IS AWAKE AND ALERT X4. PATIENT HAS NO S/S OF DISTRESS/SOB OR PAIN. INSTRUCTED PATIENT ON POC, PATIENT VERBALIZED UNDERSTANDING. BED IS IN LOWEST POSITION WITH SIDE RAILS RAISED X2, BED WHEELS LOCKED, QUINONES IS HANGING BELOW BLADDER AND IS DRAINING YELLOW URINE, AND CALL LIGHT IS WITHIN REACH. WILL CONTINUE TO MONITOR.
--- NOTE | 2019-07-05 08:30 | NUR ---
MD VAZQUEZ AT BEDSIDE INFORMED MD LABS HAVE NOT BEEN DRAWN SINCE THE 12TH MD IS AWARE. NO NEW ORDERS GIVEN
--- NOTE | 2019-07-05 09:20 | NUR ---
Respiratory note: PT FOUND OFF BIPAP ON 5L NC. NC HAS BEEN REDUCED TO 3 LPM. POX STILL 95%. NO SOB NOTED. CPAP AT BEDSIDE. B/S ARE CLEAR THROUGHOUT.
[2019-07-05] MEDS: amLODIPine BESYLATE 5 MG TAB PO SCH (09:27)
[2019-07-05] MEDS: DULoxetine HCL 30 MG CAP PO SCH (09:27)
[2019-07-05] MEDS: ENOXAPARIN SOD 40 MG/0.4 ML SYRINGE SC SCH (09:28)
--- NOTE | 2019-07-05 15:20 | NUR ---
assessment Patient is a 54 year old male who is alert and oriented. Prior to admission patient lived home with family and functioned with assistance. Patient informed me he has a [facility] caregiver Sherita. Patient has a fww for home use. Patients PCP is Dr Morley. Patient is on service with [facility]. Patient has been admitted for hip fracture. Patient informed me he was walking down the driveway to check the mail and a humming bird kept flying in his face. When patient backed up swatting at [employer] bird he lost his balance and fell. Patient is refusing rehab and wants to return home on discharge with home health PT with [facility]. Patient verbalized understanding and agreed to discharge plan home on discharge. Addendum: 07/07/19 at 1524 by Sayra RAYA Amended: Links added.
--- NOTE | 2019-07-05 17:00 | NUR ---
DRESSING CHANGED. PATIENT TOLERATED WELL. INCISION IS ASYMPTOMATIC AND WELL APPROXIMATED.
--- NOTE | 2019-07-05 19:30 | NUR ---
CLOSING SHIFT NOTE ENDORSED CARE TO LIBRARIAN HEAD JABARI HENSLEY. PATIENT HAS NO S/S OF DISTRESS/SOB OR PAIN AT THIS TIME.
--- NOTE | 2019-07-05 19:35 | NUR ---
Opening Shift Note Assumed care of patient, awake and alert. No S/S of distress/SOB. Dressing to left hip dry and intact. Price draining and patent. Discussed on POC and to call for assist PRN, patient verbalized understanding, call light within reach, will continue to monitor for changes Q1hr and PRN.
[2019-07-05] MEDS: ATORVASTATIN 20 MG TAB PO SCH (20:53)
--- NOTE | 2019-07-05 21:30 | NUR ---
ASSESSED PT FOR NOC CPAP PLACEMENT, PT DECLINED TO BE PLACED ON CPAP @ THIS TIME. STATES HE WILL CALL WHEN HE IS READY. BEDSIDE CONTINUOUS POX IN PLACE. HE IS CURRENTLY ON 3L NC SPO2 94%, HR 101, RR 20. NO DISTRESS NOTED.
[2019-07-06] MEDS: HYDROmorphone HCL 2 MG/ML VL IV PRN ×5 (01:41→20:11)
[2019-07-06 05:59] VITALS: BP 139/81
[2019-07-06] MEDS: PANTOPRAZOLE 40 MG TAB PO SCH (06:35)
--- NOTE | 2019-07-06 07:30 | NUR ---
OPENING SHIFT NOTE ASSUMED CARE OF PATIENT FROM SAP DATA ARCHITECT RN SHELLIE. PATIENT IS AWAKE AND ALERT X4. PATIENT HAS NO S/S OF DISTRESS/SOB OR PAIN. INSTRUCTED PATIENT ON POC, PATIENT VERBALIZED UNDERSTANDING. BED IS IN LOWEST POSITION WITH SIDE RAILS RAISED X2, BED WHEELS LOCKED, QUINONES IS HANGING BELOW BLADDER AND IS DRAINING LIGHT ANGELIQUE URINE, AND CALL LIGHT IS WITHIN REACH. WILL CONTINUE TO MONITOR.
[2019-07-06 08:15] VITALS: BP 125/75
[2019-07-06 09:00] VITALS: BP 125/75
--- NOTE | 2019-07-06 09:00 | NUR ---
MD VAZQUEZ AT BEDSIDE UPDATED MD ON PATIENT'S STATUS. MD IS AWARE. NO NEW ORDERS GIVEN AT THIS TIME. WILL CONTINUE TO MONITOR.
[2019-07-06] MEDS: HYDROcodone-ACET 5/325MG TAB PO PRN ×2 (09:26→21:48)
[2019-07-06] MEDS: DULoxetine HCL 30 MG CAP PO SCH (09:26)
[2019-07-06] MEDS: ENOXAPARIN SOD 40 MG/0.4 ML SYRINGE SC SCH (09:26)
[2019-07-06] MEDS: amLODIPine BESYLATE 5 MG TAB PO SCH (09:27)
--- NOTE | 2019-07-06 10:30 | NUR ---
PATIENT UP IN CHAIR WITH ASSISTANCE FROM PHYSICAL THERAPY.
[2019-07-06 13:00] VITALS: BP 124/74
--- NOTE | 2019-07-06 14:38 | NUR ---
Nutrition Assessment Notes please see attached link for complete assessment Est. Needs BW 94 [id number] kcal (23-25 kcal/kgBW), 94-103 gms pro (1.0-1.1 gms/kgBW). Will continue to monitor pertinent labs and reassess nutrient need prn Addendum: 07/06/19 at [address] Amended: Links added.
[2019-07-06 17:28] VITALS: BP 142/86
--- NOTE | 2019-07-06 19:17 | NUR ---
CLOSING SHIFT NOTE ENDORSED CARE TO PHYSICAL FITNESS TEACHER JABARI HENSLEY. PATIENT HAS NO S/S OF DISTRESS/SOB OR PAIN AT THIS TIME.
--- NOTE | 2019-07-06 21:37 | NUR ---
AT BEDSIDE FOR CPAP PLACEMENT. PT IS REQUESTING THERAPIST TO COME BACK AT MIDNIGHT DUE TO PT HAVING HICCUPS. WILL RETURN AT MIDNIGHT.
[2019-07-06] MEDS: ATORVASTATIN 20 MG TAB PO SCH (21:47)
[2019-07-06 22:00] VITALS: BP 133/72
[2019-07-07] MEDS: HYDROmorphone HCL 2 MG/ML VL IV PRN ×2 (00:43→09:53)
[2019-07-07 01:25] VITALS: BP 133/72
[2019-07-07 05:57] VITALS: BP 129/79
[2019-07-07] MEDS: PANTOPRAZOLE 40 MG TAB PO SCH (06:07)
--- NOTE | 2019-07-07 07:25 | NUR ---
Respiratory note: PT NOT CURRENTLY ON CPAP MACHINE. NO RESPIRATORY DISTRESS NOTED. SPO2 93% HR 86 RR 20.
--- NOTE | 2019-07-07 07:50 | NUR ---
OPENING NOTE ASSUMED CARE OF PT. ALERT AND ORIENTED. NO SIGNS OF SOB/DISTRESS NOTED. BED SET TO LOWEST POSITION/LOCKED. BEDSIDE RAILS UP X2. CALL LIGHT WITHIN REACH. INSTRUCTED PT TO CALL FOR ASSISTANCE. DISCUSSED POC. WILL CONTINUE TO MONITOR Q1HR AND PRN.
[2019-07-07 09:00] VITALS: BP 127/78
[2019-07-07 09:33] VITALS: BP 118/76
[2019-07-07] MEDS: DULoxetine HCL 30 MG CAP PO SCH (09:52)
[2019-07-07] MEDS: ENOXAPARIN SOD 40 MG/0.4 ML SYRINGE SC SCH (09:53)
[2019-07-07] MEDS: amLODIPine BESYLATE 5 MG TAB PO SCH (09:53)
[2019-07-07 10:53] LABS: BUN/Creatinine Ratio 16.4; Calcium 9.2 mg/dL (8.5-10.1); Potassium 3.8 mmol/L (3.5-5.1)
[2019-07-07 11:26] LABS: Basophils # (auto) 0 uL; Basophils % (auto) 0.5 % (0.0-2.0); Eosinophils # (auto) 0.2 uL; Eosinophils % (auto) 2.5 % (0.0-7.0); Hematocrit 40.6 % (41.0-53.0); Hemoglobin 13.8 g/dL (13.5-17.5); Lymphocytes # (auto) 1.5 uL; Lymphocytes % (auto) 18.1 % (10.0-50.0); Mean Corpuscular Hemoglobin 32.4 pg (28.0-32.0); Mean Corpuscular Hgb Conc. 34.1 g/dL (32.0-36.0); Monocytes # (auto) 1.2 uL; Monocytes % (auto) 15.1 % (0.0-12.0); Neutrophils # (auto) 5.2 uL; Neutrophils % (auto) 63.8 % (37.0-80.0); Nucleated Red Blood Cells % 0.2 %; Platelet Count (auto) 197 10^3/uL (140-450); Red Blood Cells 4.27 10^6/uL (4.5-5.90); Red Cell Distribution Width 12.6 % (11.8-14.3); White Blood Cell 8.1 10^3/uL (4.4-10.8)
--- NOTE | 2019-07-07 11:55 | NUR ---
Price catheter dc'd Order to discontinue Price catheter. Price dc'd with clean technique following deflation of balloon. Patient tolerated well with no complaints of pain. Continue care.
--- NOTE | 2019-07-07 12:30 | NUR ---
Discharge instructions given as ordered. Encourage to follow up with PMD as instructed. All questions and concerns addressed. Patient verbalized understanding. IV removed with catheter intact, pressure dressing applied.
--- NOTE | 2019-07-07 14:08 | NUR ---
Patient taken to vehicle via wheelchair with all personal belongings, accompanied by staff and family member. No distress noted at time of departure.
--- NOTE | 2019-07-07 17:23 | NUR ---
Discharge planning per consult, patient received orders to discharge with home health. Patient chose [facility], referral faxed, per Sandra (Hammond), they can accept this case, and start of care will be within 24-48 hours upon discharge. Addendum: 07/07/19 at 1725 by HILLARY ADAMS Amended: Links added.
== END 2019-07-07 14:04 | disposition home health service (06) | DRG 481 ==
LOC: EDBD 17:27 → ER 17:27 → OVERFLOW 17:28 → CENTRAL 23:03
PROVIDERS: ADMIT Nurse Practitioner Family; ATTEND Family Medicine
PROC: 0QU70KZ Supplement Left Upper Femur with Nonautologous Tissue Substitute, Open Approach (ICD-10-PCS; 2019-07-04)
PROC: 0QS706Z Reposition Left Upper Femur with Intramedullary Internal Fixation Device, Open Approach (ICD-10-PCS; principal; 2019-07-04 13:36)
DX: S72.012A Unspecified intracapsular fracture of left femur, initial encounter for closed fracture (principal); I69.354 Hemiplegia and hemiparesis following cerebral infarction affecting left non-dominant side; R65.10 Systemic inflammatory response syndrome (SIRS) of non-infectious origin without acute organ dysfunction; E87.6 Hypokalemia; I10 Essential (primary) hypertension; E78.00 Pure hypercholesterolemia, unspecified; E78.5 Hyperlipidemia, unspecified; M21.052 Valgus deformity, not elsewhere classified, left hip; G62.9 Polyneuropathy, unspecified; W18.39XA Other fall on same level, initial encounter; Z79.01 Long term (current) use of anticoagulants; Y93.01 Activity, walking, marching and hiking; Y92.89 Other specified places as the place of occurrence of the external cause; Y99.8 Other external cause status; Z80.1 Family history of malignant neoplasm of trachea, bronchus and lung; Z82.49 Family history of ischemic heart disease and other diseases of the circulatory system
CPT/HCPCS: 36415; 71045; 72192; 73502; 76001; 80048; 80053; 81001; 82962; 83735; 85025; 85610; 85730; 86850; 86900; 86901; 93005; 94660; 94761; 96361; 96374; 96375; 97110; 97116; 97163; 97530; A4565; C1713; C1769; G0378; J0330; J0690; J2250; J2405; J2704

== ENCOUNTER → 2019-12-21 | Outpatient (CLI) | payer MEDICARE, MEDICAID ==
[~2019-12-21] MED LIST changes: -ATOR20TA50 PO; +ATOR40TA52 PO; +GABA-339 PO; -LOSA-69 PO; +LOSA25TA38 PO; -NIC21P TD
== END | disposition home or self-care (01) ==
LOC: Rad HDHVI 11:11
PROVIDERS: ATTEND Internal Medicine
DX: I11.9 Hypertensive heart disease without heart failure (principal); I48.91 Unspecified atrial fibrillation; R06.02 Shortness of breath
CPT/HCPCS: 93306

== ENCOUNTER → 2020-01-02 | Outpatient (CLI) | payer MEDICARE, MEDICAID ==
[~2020-01-02] VITALS: Ht 182.9 cm; Wt 89.4 kg
[~2020-01-02] MED LIST changes: +ADENOSINE 75 MG in GIVE UN-DILUTED 0 ML IV ONE; +ADENOSINE 90 MG/30 ML INJ IV ONE
[2020-01-02 11:49] LABS: Potassium 4.3 mmol/L (3.5-5.1)
[2020-01-02 12:06] LABS: Albumin 3.8 g/dL (3.4-5.0); BUN/Creatinine Ratio 9.6; Bilirubin, Total 0.2 mg/dL (0.2-1.0); Calcium 9.4 mg/dL (8.5-10.1); Total Protein 7.4 g/dL (6.4-8.2)
== END | disposition home or self-care (01) ==
LOC: Rad HDHVI 08:11
PROVIDERS: ATTEND Internal Medicine
DX: E03.9 Hypothyroidism, unspecified (principal); E21.4 Other specified disorders of parathyroid gland; E78.00 Pure hypercholesterolemia, unspecified; R07.89 Other chest pain; I10 Essential (primary) hypertension; Z86.73 Personal history of transient ischemic attack (TIA), and cerebral infarction without residual deficits; Z82.49 Family history of ischemic heart disease and other diseases of the circulatory system
CPT/HCPCS: 36415; 78452; 80053; 83970; 84443; 93005; 96374; 96375; A9500; J0153

== ENCOUNTER → 2020-08-26 | Outpatient (CLI) | payer MEDICARE, MEDICAID ==
[~2020-08-26] MED LIST changes: -ADENOSINE 75 MG in GIVE UN-DILUTED 0 ML IV ONE; -ADENOSINE 90 MG/30 ML INJ IV ONE; -ASP81EC PO; +ASPI-394 PO
[2020-08-26 12:27] LABS: Basophils # (auto) 0.1 10 ^3/uL (0-0.2); Basophils % (auto) 0.9 % (0.0-2.0); Eosinophils # (auto) 0.2 10 ^3/uL (0-0.8); Eosinophils % (auto) 3.7 % (0.0-7.0); Hematocrit 40.9 % (41.0-53.0); Hemoglobin 14.1 g/dL (13.5-17.5); Lymphocytes % (auto) 31.3 % (10.0-50.0); Mean Corpuscular Hgb Conc. 34.5 g/dL (32.0-36.0); Mean Corpuscular Volume 95.7 fL (80.0-100.0); Monocytes # (auto) 0.8 10 ^3/uL (0-1.3); Monocytes % (auto) 12.5 % (0.0-12.0); Neutrophils # (auto) 3.3 10 ^3/uL (1.6-8.6); Neutrophils % (auto) 51.6 % (37.0-80.0); Nucleated Red Blood Cells % 0.1 %; Platelet Count (auto) 205 10^3/uL (140-450); Red Blood Cells 4.27 10^6/uL (4.5-5.90); White Blood Cell 6.4 10^3/uL (4.4-10.8)
[2020-08-26 12:31] LABS: Urine Blood Negative /uL (Negative); Urine Specific Gravity 1.013 (1.001-1.035)
[2020-08-26 12:46] LABS: Potassium 3.9 mmol/L (3.5-5.1)
[2020-08-26 12:49] LABS: Free T4 (Free Thyroxine) 0.72 ng/dL (0.89-1.76)
[2020-08-26 12:50] LABS: Prostate Specific Antigen 1.35 ng/mL (0.0-4.0)
[2020-08-26 13:02] LABS: Albumin 4.1 g/dL (3.4-5.0); Bilirubin, Total 0.5 mg/dL (0.2-1.0); Calcium 9.6 mg/dL (8.5-10.1); Total Protein 7.5 g/dL (6.4-8.2)
== END | disposition home or self-care (01) ==
LOC: LAB 08:48
PROVIDERS: ATTEND Internal Medicine Cardiovascular Disease
DX: C61 Malignant neoplasm of prostate (principal); D51.3 Other dietary vitamin B12 deficiency anemia; D64.9 Anemia, unspecified; I10 Essential (primary) hypertension; E11.9 Type 2 diabetes mellitus without complications; E55.9 Vitamin D deficiency, unspecified; R00.2 Palpitations; R53.1 Weakness; R30.0 Dysuria
CPT/HCPCS: 36415; 80053; 80061; 81003; 82306; 82607; 83036; 84153; 84403; 84439; 84443; 85025

== ENCOUNTER → 2021-03-24 | Outpatient (CLI) | payer MEDICARE, MEDICAID ==
[2021-03-24 12:05] LABS: Urine Blood Negative /uL (Negative); Urine Specific Gravity 1.015 (1.001-1.035)
[2021-03-24 12:14] LABS: Basophils # (auto) 0 10 ^3/uL (0-0.2); Basophils % (auto) 0.7 % (0.0-2.0); Eosinophils # (auto) 0.3 10 ^3/uL (0-0.8); Eosinophils % (auto) 4.5 % (0.0-7.0); Hematocrit 41.3 % (41.0-53.0); Hemoglobin 14.3 g/dL (13.5-17.5); Lymphocytes # (auto) 2.9 10 ^3/uL (0.4-5.4); Lymphocytes % (auto) 44.4 % (10.0-50.0); Mean Corpuscular Hemoglobin 33.5 pg (28.0-32.0); Mean Corpuscular Hgb Conc. 34.7 g/dL (32.0-36.0); Mean Corpuscular Volume 96.6 fL (80.0-100.0); Monocytes % (auto) 14.9 % (0.0-12.0); Neutrophils # (auto) 2.3 10 ^3/uL (1.6-8.6); Neutrophils % (auto) 35.5 % (37.0-80.0); Nucleated Red Blood Cells % 0.1 %; Platelet Count (auto) 180 10^3/uL (140-450); Red Blood Cells 4.27 10^6/uL (4.5-5.90); Red Cell Distribution Width 12.7 % (11.8-14.3); White Blood Cell 6.5 10^3/uL (4.4-10.8)
[2021-03-24 12:23] LABS: Potassium 4.6 mmol/L (3.5-5.1)
[2021-03-24 12:31] LABS: Albumin 3.8 g/dL (3.4-5.0); Bilirubin, Total 0.6 mg/dL (0.2-1.0); Calcium 9.3 mg/dL (8.5-10.1); Total Protein 7.6 g/dL (6.4-8.2)
[2021-03-24 12:41] LABS: Free T4 (Free Thyroxine) 0.88 ng/dL (0.89-1.76); Prostate Specific Antigen 1.26 ng/mL (0.0-4.0)
== END | disposition home or self-care (01) ==
LOC: LAB 08:25
PROVIDERS: ATTEND Internal Medicine
DX: C61 Malignant neoplasm of prostate (principal); D51.3 Other dietary vitamin B12 deficiency anemia; I10 Essential (primary) hypertension; E11.9 Type 2 diabetes mellitus without complications; E55.9 Vitamin D deficiency, unspecified; D64.9 Anemia, unspecified; R00.2 Palpitations; R53.1 Weakness; R30.0 Dysuria
CPT/HCPCS: 36415; 80053; 80061; 81003; 82306; 82607; 83036; 84153; 84403; 84439; 84443; 85025

== ENCOUNTER → 2021-07-01 | Outpatient (CLI) | payer MEDICARE, MEDICAID | END | disposition home or self-care (01) | LOC: Rad HDHVI 13:07 | PROVIDERS: ATTEND Internal Medicine | DX: I11.9 Hypertensive heart disease without heart failure (principal); J34.89 Other specified disorders of nose and nasal sinuses; E78.5 Hyperlipidemia, unspecified | CPT/HCPCS: 93306 ==

== ENCOUNTER → 2021-07-04 | Outpatient (CLI) | payer MEDICARE, MEDICAID ==
[~2021-07-04] VITALS: Ht 182.9 cm; Wt 93.0 kg
[~2021-07-04] MED LIST changes: +ADENOSINE 78 MG in GIVE UN-DILUTED 0 ML IV ONE; +ADENOSINE 90 MG/30 ML INJ IV ONE
== END | disposition home or self-care (01) ==
LOC: Rad HDHVI 09:13
PROVIDERS: ATTEND Internal Medicine
DX: I10 Essential (primary) hypertension (principal); I63.9 Cerebral infarction, unspecified; I87.2 Venous insufficiency (chronic) (peripheral); E78.5 Hyperlipidemia, unspecified; Z82.49 Family history of ischemic heart disease and other diseases of the circulatory system
CPT/HCPCS: 78452; 93005; 96374; 96375; A9500; J0153

== ENCOUNTER → 2023-01-05 | Outpatient (CLI) | payer MEDICARE, MEDICAID ==
[~2023-01-05] MED LIST changes: -ADENOSINE 78 MG in GIVE UN-DILUTED 0 ML IV ONE; -ADENOSINE 90 MG/30 ML INJ IV ONE; +CLOP75TA28 PO; +HYDR12.56 PO; +LOSA-69 PO; +SERT100T PO
[2023-01-05 08:06] VITALS: BP 130/72
[2023-01-05 08:17] VITALS: BP 131/70
[2023-01-05 11:12] LABS: Basophils # (auto) 0 10 ^3/uL (0-0.2); Basophils % (auto) 0.7 % (0.0-2.0); Eosinophils # (auto) 0.1 10 ^3/uL (0-0.8); Eosinophils % (auto) 1.2 % (0.0-7.0); Hematocrit 41.2 % (41.0-53.0); Hemoglobin 13.6 g/dL (13.5-17.5); Lymphocytes # (auto) 2.2 10 ^3/uL (0.4-5.4); Lymphocytes % (auto) 32.6 % (10.0-50.0); Mean Corpuscular Hemoglobin 32.2 pg (28.0-32.0); Mean Corpuscular Hgb Conc. 33.1 g/dL (32.0-36.0); Monocytes # (auto) 0.8 10 ^3/uL (0-1.3); Neutrophils # (auto) 3.7 10 ^3/uL (1.6-8.6); Neutrophils % (auto) 53.5 % (37.0-80.0); Nucleated Red Blood Cells % 0.1 %; Red Blood Cells 4.24 10^6/uL (4.5-5.90); Red Cell Distribution Width 13.1 % (11.8-14.3); White Blood Cell 6.9 10^3/uL (4.4-10.8)
[2023-01-05 11:21] LABS: Potassium 4.8 mmol/L (3.5-5.1)
[2023-01-05 11:27] LABS: BUN/Creatinine Ratio 21.3; Calcium 9.1 mg/dL (8.5-10.1); INR 0.99 (0.9-1.15); Partial Thromboplastin Time 26.6 sec (24.6-33.4)
== END | disposition home or self-care (01) ==
LOC: Rad HDHVI 08:10
PROVIDERS: ATTEND Internal Medicine
DX: R79.1 Abnormal coagulation profile (principal)
CPT/HCPCS: 36415; 71046; 80048; 85025; 85610; 85730; G0463

== ENCOUNTER 2023-01-06 07:59 | Day surgery (SDC) | payer MEDICARE, MEDICAID ==
[~2023-01-06] VITALS: Ht 182.9 cm; Wt 89.8 kg
[~2023-01-06 07:59] MED LIST changes: -AML5T PO; -ASPI-394 PO; -LOSA25TA38 PO
[2023-01-06] MEDS ORDERED: fentaNYL CITRATE 100 MCG/2 ML VL IV ONE (08:15)
[2023-01-06] MEDS ORDERED: LIDOCAINE VISCOUS 2% 15ML UD MT ONE (08:15)
[2023-01-06] MEDS ORDERED: MIDAZOLAM HCL 2MG/2ML 2ml VIAL (1mg/ml) IV ONE (08:15)
[2023-01-06] MEDS ORDERED: ONDANSETRON HCL 4 MG/2 ML VIAL ONE (09:24)
[2023-01-06 09:38] VITALS: BP 123/73
[2023-01-06 09:55] VITALS: BP 123/62
[2023-01-06] MEDS ORDERED: ONDANSETRON HCL 4 MG/2 ML VIAL IV ONE (10:00)
[2023-01-06 10:10] VITALS: BP 122/77
[2023-01-06 10:20] VITALS: BP 120/71
== END 2023-01-06 10:30 | disposition home or self-care (01) ==
LOC: CATH 07:59
PROVIDERS: ATTEND Internal Medicine
DX: Q21.12 Patent foramen ovale (principal); I08.1 Rheumatic disorders of both mitral and tricuspid valves
CPT/HCPCS: 93312; J2250; J2405; J3010; 99152

== ENCOUNTER → 2023-06-24 | Outpatient (CLI) | payer MEDICARE, MEDICAID ==
[~2023-06-24] MED LIST changes: -HYDR12.56 PO; +HYDR12.59 PO; -LOSA-69 PO; +LOSA50TA46 PO
== END | disposition home or self-care (01) ==
LOC: Rad HDHVI 13:07
PROVIDERS: ATTEND Internal Medicine Cardiovascular Disease
DX: I08.1 Rheumatic disorders of both mitral and tricuspid valves (principal); I10 Essential (primary) hypertension; E78.5 Hyperlipidemia, unspecified
CPT/HCPCS: 93306

== ENCOUNTER → 2023-06-29 | Outpatient (CLI) | payer MEDICARE, MEDICAID ==
[~2023-06-29] VITALS: Ht 182.9 cm; Wt 93.0 kg
[~2023-06-29] MED LIST changes: +ADENOSINE 78 MG in GIVE UN-DILUTED 0 ML IV ONE; +ADENOSINE 90 MG/30 ML INJ IV ONE
== END | disposition home or self-care (01) ==
LOC: Rad HDHVI 13:34
PROVIDERS: ATTEND Internal Medicine Cardiovascular Disease
DX: R06.02 Shortness of breath (principal); R00.2 Palpitations; I63.9 Cerebral infarction, unspecified; I10 Essential (primary) hypertension; E78.5 Hyperlipidemia, unspecified; Q21.12 Patent foramen ovale; Z82.49 Family history of ischemic heart disease and other diseases of the circulatory system
CPT/HCPCS: 78452; 93005; 96374; 96375; A9500; J0153

== ENCOUNTER → 2024-06-06 | Outpatient (CLI) | payer MEDICARE, MEDICAID ==
[~2024-06-06] MED LIST changes: -ADENOSINE 78 MG in GIVE UN-DILUTED 0 ML IV ONE; -ADENOSINE 90 MG/30 ML INJ IV ONE; +LOSA-534 PO; -LOSA50TA46 PO
== END | disposition home or self-care (01) ==
LOC: Rad HDHVI 09:04
PROVIDERS: ATTEND Internal Medicine Cardiovascular Disease
DX: I35.8 Other nonrheumatic aortic valve disorders (principal); R00.2 Palpitations
CPT/HCPCS: 93306

== ENCOUNTER → 2024-11-29 | Outpatient (CLI) | payer MEDICARE, MEDICAID ==
[~2024-11-29] VITALS: Ht 182.9 cm; Wt 96.2 kg
[~2024-11-29] MED LIST changes: +ADENOSINE 81 MG in GIVE UN-DILUTED 0 ML IV ONE; +ADENOSINE 90 MG/30 ML INJ IV ONE
== END | disposition home or self-care (01) ==
LOC: Rad HDHVI 08:05
PROVIDERS: ATTEND Internal Medicine Cardiovascular Disease
DX: I10 Essential (primary) hypertension (principal); I63.9 Cerebral infarction, unspecified; E78.00 Pure hypercholesterolemia, unspecified; G45.9 Transient cerebral ischemic attack, unspecified; R06.02 Shortness of breath; Z95.0 Presence of cardiac pacemaker; Z82.49 Family history of ischemic heart disease and other diseases of the circulatory system
CPT/HCPCS: 78452; 93005; 96374; 96375; A9500; J0153

== ENCOUNTER 2025-11-07 19:32 | Emergency (ER) | payer MEDICARE, MEDICAID ==
[~2025-11-07] VITALS: Ht 182.9 cm; Wt 95.4 kg
[~2025-11-07 19:32] MED LIST changes: -ADENOSINE 81 MG in GIVE UN-DILUTED 0 ML IV ONE; -ADENOSINE 90 MG/30 ML INJ IV ONE
[2025-11-07 19:39] VITALS: BP 112/64; PULSE 74; RESP 16; TEMP 98.3; O2SAT 98
--- NOTE | 2025-11-07 20:44 | DVH ---
CLINICAL INDICATION: r/o needle foreign body right thigh TECHNIQUE: 4 radiographic views of the right femur were obtained. COMPARISON: None FINDINGS/IMPRESSION: Appears to be 2 zipper pulls over the proximal right femoral. To be a paper clip type device over the soft tissues of the right femur.
--- NOTE | 2025-11-07 21:54 | ED.PDOC ---
Foreign Body HPI Comments 60-year-old male presents to ER with complaints of foreign body to right leg x1 day. Patient presents to ER for rule out foreign body to right thigh s/p a 25 gauge needle "dislodging" while he was using it to give himself a testosterone injection to right thigh at 7 p.m. prior to arrival to ER. Denies any pain and presents to ER ambulatory on arrival, with steady gait, in no distress. Denies bleeding, numbness/tingling or any further symptoms/complaints Chief Complaint: Foreign Body Time Seen by MD: 19:55 Primary Care Provider: ENE Benavides) History of Present Illness: Nurses Notes, Medications, Allergies Allergies: Coded Allergies: NO KNOWN ALLERGIES (Unverified , 03/07/18) Home Meds Active Scripts Duloxetine HCl (Duloxetine HCl) 30 Mg Cap, 60 MG PO DAILY, #90 CAP Prov:PARDEEP ANGUIANO MD 03/21/18 Reported Medications Clopidogrel Bisulfate (Plavix) 75 Mg Tab, 75 MG PO DAILY, TAB 01/05/23 Sertraline Hcl (Zoloft) 100 Mg Tab, 200 MG PO DAILY, TAB 01/05/23 Hydrochlorothiazide (Hydrochlorothiazide) 12.5 Mg Cap, 12.5 MG PO DAILY for 30 Days, MG 01/05/23 Gabapentin (Gabapentin) 600 Mg Tab, 600 MG PO QID for 30 Days, MG 01/05/23 Losartan Potassium (Losartan Potassium) 50 Mg Tab, 50 MG PO DAILY for 30 Days, MG 01/05/23 Atorvastatin Calcium (ATORVASTATIN CALCIUM) 40 Mg Tab, 1 TAB PO HS, #30 TAB 5 Refills 07/03/19 Information Source: Patient Mode of Arrival: Ambulatory Past Medical History PAST MEDICAL HISTORY: CVA, High Lipids, HTN, TIA Surgical History: Denies all surgeries Family History Family History: Unknown Social History Smoker: Non-Smoker Alcohol: Denies ETOH Use Drugs: Denies Drug Use Lives In: Home Constitutional: denies: chills, diaphoresis, fatigue, fever, malaise, sweats, weakness, others EENTM: denies: blurred vision, double vision, ear bleeding, ear discharge, ear drainage, ear pain, ear ringing, eye pain, eye redness, hearing loss, mouth pain, mouth swelling, nasal discharge, nose bleeding, nose congestion, nose pa in, photophobia, tearing, throat pain, throat swelling, voice changes, others Respiratory: denies: cough, hemoptysis, orthopnea, SOB at rest, shortness of breath, SOB with excertion, stridor, wheezing, others Cardiovascular: denies: chest pain, dizzy spells, diaphoresis, Dyspnea on exertion, edema, irregular heart beat, left arm pain, lightheadedness, palpitations, PND, syncope, others Gastrointestinal: denies: abdomen distended, abdominal pain, blood streaked bowels, constipated, diarrhea, dysphagia, difficulty swallowing, hematemesis, melena, nausea, poor appetite, poor fluid intake, rectal bleeding, rectal pain, vomiting, others Genitourinary: denies: burning, dysuria, flank pain, frequency, hematuria, incontinence, penile discharge, penile sore, pain, testicle pain, testicle swelling, urgency, others Neurological: denies: dizziness, fainting, headache, left sided numbness, left sided weakness, numbness, paresthesia, pre-existing deficit, right sided numbness, right sided weakness, seizure, speech problems, tingling, tremors, weakness, others Musculoskeletal: reports: others (As stated in HPI) Integumetry: reports: others (As stated in HPI) Allergic/Immunocompromised: denies: Difficulty Healing, Frequent Infections, Hives, Itching, others Hematologic/Lymphatic: denies: anemia, blood clots, easy bleeding, easy bruising, swollen glands, others Physical Exam General Appearance: No Apparent Distress HEENT: PERRL/EOMI Neck: Full Range of Motion, Non-Tender, Normal Respiratory: Chest Non-Tender, Lungs Clear, No Accessory Muscle Use, No Respiratory Distress, Normal Breath Sounds Cardiovascular: No Murmur, No Gallop, Regular Rate/Rhythm Breast Exam: Deferred Gastrointestinal: NOT DONE Genitalia: Deferred Pelvic: Deferred Rectal: Deferred Extremities: No calf tenderness, Normal capillary refill, Normal range of motion Musculoskeletal : Extremity Location: Thigh (No swelling/focal pain/erythema/bleeding or palpable/appreciable foreign body noted to right thigh.) Neurologic: Alert, No Motor Deficits, Normal Affect, Normal Mood, No Sensory Deficits Cerebellar Function: Normal Reflexes: Normal Skin: Dry, Normal Color, Warm Peripheral Pulses: 2+ femoral (R), 2+ femoral (L), 2+ dorsalis pedis (R), 2+ dorsalis pedis (L), 2+ Radial (R), 2+ Radial (L), 2+ Brachial (R), 2+ Brachial (L) Lymphatic: No Adenopathy Was a procedure done? Was a procedure done?: No Sedation Sedation?: No FB Differential Dx Differential Diagnosis: Abrasion, Foreign Body, Laceration, Perforation, Other (Neurovascular injury) X-Ray, Labs, Meds, VS Vital Signs Date Time Temp Pulse Resp B/P (MAP) Pulse Ox O2 Delivery O2 Flow Rate FiO2 11/07/25 19:39 98.3 74 16 112/64 98 98.3 PATIENT: KEERTHI VELÁSQUEZ CACCT: [id number]: [id number] : 1965 LOC: ER ROOM / BED: / AGE / SEX: 60 / M ADM STATUS: REG ER SERVICE 54 ORDERING PHYSICIAN: ANA DANG PROCEDURE(s): RFEM - R FEMUR XRAY REASON: r/o needle foreign body right thigh ORDER NUMBER(s): [id number], ACCESSION NUMBER(s): [id number] CLINICAL INDICATION: r/o needle foreign body right thigh TECHNIQUE: 4 radiographic views of the right femur were obtained. COMPARISON: None FINDINGS/IMPRESSION: Appears to be 2 zipper pulls over the proximal right femoral. To be a paper clip type device over the soft tissues of the right femur. ATED BY: TAYE SHIN Jr., DO DICTATED DATE/TIME: 11/07/252041 SIGNED BY: TAYE SHIN Jr., SIGNED DATE/TIME: 11/07/252041 CC: Right femur x-ray reviewed Patient neurovascularly intact and asymptomatic prior to discharge Advised to follow up with PCP in 1-2 days Patient verbalized understanding and agreeable with current plan of care Advised to return to ER immediately if symptoms worsen Images Reviewed?: Images reviewed and evaluated by me Time of 1ST Reevaluation: 21:24 Reevaluation 1ST: N/A Patient Education/Counseling: Diagnosis, Treatment, Prognosis, Need For Follow Up Family Education/Counseling: No Family Present Departure 1 Departure Time of Disposition: 21:53 Impression: Primary Impression: Encounter for observation for suspected inserted (injected) foreign body ruled out Disposition: 01 HOME / SELF CARE / HOMELESS Condition: Stable Discharged With: Self Critical Care Note Critical Care Time?: No Stability Stability form required: No Heart Score Heart Score: Heart Score Response (Comments) Value History N/A 0 EKG N/A 0 Age N/A 0 Risk Factors N/A 0 Troponin N/A 0 Total 0 ANA DANG Nov 07, 2025 21:54
== END 2025-11-07 22:17 | disposition home or self-care (01) ==
LOC: ER 19:32
DX: Z03.823 Encounter for observation for suspected inserted (injected) foreign body ruled out (principal); I10 Essential (primary) hypertension; E78.5 Hyperlipidemia, unspecified; Z79.899 Other long term (current) drug therapy; Z86.73 Personal history of transient ischemic attack (TIA), and cerebral infarction without residual deficits; Z79.02 Long term (current) use of antithrombotics/antiplatelets